=== PATIENT | male | born 1965 | race Caucasian/White ===

== ENCOUNTER 2024-04-14 10:44 | Outpatient (CLI) | payer OTHER, SELFPAY ==
[2024-04-14 10:20] LABS: Abs Immature Grans 0.07 10^3/uL (0.0-0.06); Absolute Basophil Count 0.05 10^3/uL (0.0-0.2); Absolute Eosinophil Count 0.02 10^3/uL (0.0-0.7); Absolute Lymphocyte Count 0.48 10^3/uL (1.2-3.4); Absolute Monocyte Count 0.48 10^3/uL (0.1-0.8); Absolute Neutrophil Count 3.96 10^3/uL (1.2-6.7); Eosinophils % 0.4 %; HCT 38.5 % (40.0-50.0); HGB 14.1 g/dL (13.5-17.5); Immature Grans % 1.4 %; Lymphocytes % 9.5 %; MCH 30.2 pg (27.0-33.0); MCHC 36.6 % (32.0-36.0); MCV 82 fL (80-95); MPV 8.4 fL (8.0-11.0); Monocytes % 9.5 %; Neutrophils % 78.2 %; Platelet Count 237 10^3/uL (130-400); RBC 4.67 10^6/uL (4.36-5.78); RDW 11.2 % (11.8-14.1); RDW-SD 33.2 fL; WBC 5.06 10^3/uL (4.4-10.8)
[2024-04-14 11:52] LABS: ALT 47 U/L (16-63); AST 43 U/L (15-37); Albumin 3.8 g/dL (3.4-5.0); Alkaline Phosphatase 89 U/L (46-116); Anion Gap 10.9 mmol/L (3-11); BUN 4 mg/dL (7-18); Bilirubin, Total 0.67 mg/dL (0.2-1.0); CO2 25.1 mmol/L (21.0-32.0); CREATININE 0.8 mg/dL (0.70-1.30); Calcium 8.3 mg/dL (8.5-10.1); Chloride 86 mmol/L (98-107); Estimated GFR 100.69 (mL/min/1.73m2); Glucose 166 mg/dL (74-106); Magnesium 1.6 mg/dL (1.8-2.4); Potassium 3.9 mmol/L (3.5-5.1); TSH 0.75 uIU/mL (0.36-3.74); Total Protein 7.7 g/dL (6.4-8.2)
[2024-04-14 11:56] LABS: Sodium 122 mmol/L (136-145)
== END 2024-04-14 10:45 | disposition home or self-care (01) ==
LOC: LBO 10:44
PROVIDERS: Visit Provider Internal Medicine Medical Oncology
DX: C79.51 Secondary malignant neoplasm of bone (principal); C78.01 Secondary malignant neoplasm of right lung; C78.02 Secondary malignant neoplasm of left lung; Z79.899 Other long term (current) drug therapy
CPT/HCPCS: 36415; 80053; 83735; 84439; 84443; 85025

== ENCOUNTER 2024-04-28 02:28 | Outpatient (CLI) | payer OTHER, SELFPAY ==
--- NOTE | 2024-04-28 | DI.MRI_ITS ---
Exam(s) MR BRAIN WO/W EXAM: MR BRAIN WO/W CLINICAL HISTORY: NEW METASTATIC LUNG CA,BONE OF UNKNOWN PRIMARY,[id number] TECHNIQUE: Multiplanar multisequence MRI of the brain was performed. CONTRAST MATERIAL: IV Contrast: 19 mL of Dotarem contrast administered. COMPARISON: No exams were available for comparison FINDINGS: VENTRICLES AND EXTRA AXIAL SPACES: Normal in size and morphology for the patient's age. HEMORRHAGE: None. CEREBRAL PARENCHYMA: No focus of restricted diffusion to suggest acute infarct. 1.2 x 0.8 x 1.2 cm en hancing lesion in the right occipital lobe with surrounding edema in the white matter. There are few foci of hyperintense nonenhancing signal in the white matter on the FLAIR and T2 weighted images lik rui reflecting small vessel ischemic disease. MIDLINE SHIFT: None. BRAINSTEM/CEREBELLUM: Normal. CALVARIUM: Normal. ENHANCEMENT: There is a 1.2 AP by 0.8 transverse by 1.2 craniocaudad cm enhancing lesion in the right occipital lobe. The findings are suspicious for metastatic focus. There is surrounding edema in th e white matter. There is no significant mass effect on the adjacent ventricle. VISUALIZED PARANASAL SINUSES/MASTOIDS: Mild mucosal thickening in the maxillary sinuses bilaterally. The remaining visualized paranasal sinuses are clear. The mastoid air cells are well pneumatized. AT[place] OF FORREST: Normal flow void. PITUITARY GLAND: Unremarkable. OTHER FINDINGS: IMPRESSION: 1.2 x 0.8 x 1.2 cm enhancing right occipital lesions suspicious for metastatic focus. Primary intrac ranial neoplasm cannot be entirely excluded. Unexpected findings DATA REPOSITORY:
[2024-04-28] MEDS: Gadoterate meglumine 20 ML SYRINGE 19 ML IVP (08:39)
[2024-04-28] MEDS: Normal Saline Flush 10 ML SYR IJ (08:40)
[2024-04-28 08:42] LABS: Abs Immature Grans 0.18 10^3/uL (0.0-0.06); Absolute Basophil Count 0.12 10^3/uL (0.0-0.2); Absolute Eosinophil Count 0.07 10^3/uL (0.0-0.7); Absolute Lymphocyte Count 0.67 10^3/uL (1.2-3.4); Absolute Monocyte Count 1.09 10^3/uL (0.1-0.8); Absolute Neutrophil Count 6.52 10^3/uL (1.2-6.7); Basophils % 1.4 %; Eosinophils % 0.8 %; HCT 39.9 % (40.0-50.0); HGB 13.4 g/dL (13.5-17.5); Immature Grans % 2.1 %; Lymphocytes % 7.7 %; MCH 30.1 pg (27.0-33.0); MCHC 33.6 % (32.0-36.0); MCV 90 fL (80-95); MPV 7.8 fL (8.0-11.0); Monocytes % 12.6 %; Neutrophils % 75.4 %; Platelet Count 217 10^3/uL (130-400); RBC 4.45 10^6/uL (4.36-5.78); RDW 13.9 % (11.8-14.1); RDW-SD 44.8 fL; WBC 8.65 10^3/uL (4.4-10.8)
[2024-04-28 08:57] LABS: ALT 34 U/L (16-63); AST 30 U/L (15-37); Albumin 4.1 g/dL (3.4-5.0); Alkaline Phosphatase 98 U/L (46-116); Anion Gap 11.6 mmol/L (3-11); BUN 13 mg/dL (7-18); Bilirubin, Total 0.92 mg/dL (0.2-1.0); CO2 23.4 mmol/L (21.0-32.0); CREATININE 1.1 mg/dL (0.70-1.30); Calcium 9.1 mg/dL (8.5-10.1); Chloride 99 mmol/L (98-107); Estimated GFR 76.37 (mL/min/1.73m2); Glucose 131 mg/dL (74-106); Magnesium 0.9 mg/dL (1.8-2.4); Potassium 3.7 mmol/L (3.5-5.1); Sodium 134 mmol/L (136-145); Total Protein 8.4 g/dL (6.4-8.2)
== END 2024-04-28 02:48 ==
PROVIDERS: Visit Provider Internal Medicine Medical Oncology
DX: C78.01 Secondary malignant neoplasm of right lung (principal); C79.51 Secondary malignant neoplasm of bone; Z79.899 Other long term (current) drug therapy
CPT/HCPCS: 70553; 80053; 83735; 85025

== ENCOUNTER 2024-05-05 02:39 | Outpatient (CLI) | payer OTHER, SELFPAY ==
[2024-05-05 11:59] LABS: Abs Immature Grans 0.09 10^3/uL (0.0-0.06); Absolute Eosinophil Count 0.09 10^3/uL (0.0-0.7); Absolute Lymphocyte Count 0.77 10^3/uL (1.2-3.4); Absolute Neutrophil Count 6.08 10^3/uL (1.2-6.7); Basophils % 1.3 %; Eosinophils % 1.1 %; HCT 38.2 % (40.0-50.0); HGB 13.3 g/dL (13.5-17.5); Immature Grans % 1.1 %; Lymphocytes % 9.8 %; MCH 30.4 pg (27.0-33.0); MCHC 34.8 % (32.0-36.0); MCV 87 fL (80-95); MPV 8.3 fL (8.0-11.0); Monocytes % 8.9 %; Neutrophils % 77.8 %; Platelet Count 236 10^3/uL (130-400); RBC 4.37 10^6/uL (4.36-5.78); RDW 13.2 % (11.8-14.1); RDW-SD 41.7 fL; WBC 7.83 10^3/uL (4.4-10.8)
[2024-05-05 12:26] LABS: ALT 53 U/L (16-63); AST 88 U/L (15-37); Albumin 4.2 g/dL (3.4-5.0); Alkaline Phosphatase 112 U/L (46-116); Anion Gap 10.4 mmol/L (3-11); BUN 17 mg/dL (7-18); CO2 24.6 mmol/L (21.0-32.0); Calcium 9.7 mg/dL (8.5-10.1); Chloride 96 mmol/L (98-107); Estimated GFR 85.63 (mL/min/1.73m2); Glucose 139 mg/dL (74-106); Magnesium 1.8 mg/dL (1.8-2.4); Potassium 4.2 mmol/L (3.5-5.1); Sodium 131 mmol/L (136-145); TSH 1.07 uIU/mL (0.36-3.74); Total Protein 8.1 g/dL (6.4-8.2)
[2024-05-05 17:07] LABS: FREE T4 1.38 ng/dL (0.76-1.46)
== END 2024-05-05 02:40 | disposition home or self-care (01) ==
PROVIDERS: Visit Provider Internal Medicine Medical Oncology
DX: C79.51 Secondary malignant neoplasm of bone (principal); C78.01 Secondary malignant neoplasm of right lung; C78.02 Secondary malignant neoplasm of left lung; Z79.899 Other long term (current) drug therapy
CPT/HCPCS: 36415; 80053; 83735; 84439; 84443; 85025

== ENCOUNTER 2024-05-19 03:03 | Outpatient (CLI) | payer OTHER, SELFPAY ==
[2024-05-19 12:27] LABS: Abs Immature Grans 0.25 10^3/uL (0.0-0.06); Absolute Basophil Count 0.08 10^3/uL (0.0-0.2); Absolute Eosinophil Count 0.01 10^3/uL (0.0-0.7); Absolute Lymphocyte Count 0.75 10^3/uL (1.2-3.4); Absolute Monocyte Count 1.28 10^3/uL (0.1-0.8); Absolute Neutrophil Count 4.82 10^3/uL (1.2-6.7); Basophils % 1.1 %; Eosinophils % 0.1 %; HCT 39.7 % (40.0-50.0); HGB 13.8 g/dL (13.5-17.5); Immature Grans % 3.5 %; Lymphocytes % 10.4 %; MCH 30.7 pg (27.0-33.0); MCHC 34.8 % (32.0-36.0); MCV 88 fL (80-95); Monocytes % 17.8 %; Neutrophils % 67.1 %; Platelet Count 229 10^3/uL (130-400); RBC 4.49 10^6/uL (4.36-5.78); RDW 15.2 % (11.8-14.1); RDW-SD 47.8 fL; WBC 7.19 10^3/uL (4.4-10.8)
[2024-05-19 13:04] LABS: ALT 34 U/L (16-63); AST 31 U/L (15-37); Alkaline Phosphatase 123 U/L (46-116); Anion Gap 11.1 mmol/L (3-11); BUN 12 mg/dL (7-18); Bilirubin, Total 0.8 mg/dL (0.2-1.0); CO2 23.9 mmol/L (21.0-32.0); CREATININE 0.9 mg/dL (0.70-1.30); Calcium 9.5 mg/dL (8.5-10.1); Chloride 96 mmol/L (98-107); Estimated GFR 97.17 (mL/min/1.73m2); Glucose 133 mg/dL (74-106); Magnesium 1.6 mg/dL; Potassium 4.1 mmol/L (3.5-5.1); Sodium 131 mmol/L (136-145); TSH 0.97 uIU/mL (0.36-3.74); Total Protein 8.3 g/dL (6.4-8.2)
[2024-05-19 23:18] LABS: T4, Free 1.4 ng/dL (0.8-2.2)
== END 2024-05-19 03:04 | disposition home or self-care (01) ==
PROVIDERS: Visit Provider Internal Medicine Medical Oncology
DX: C79.51 Secondary malignant neoplasm of bone (principal); C78.01 Secondary malignant neoplasm of right lung; C78.02 Secondary malignant neoplasm of left lung; Z79.899 Other long term (current) drug therapy
CPT/HCPCS: 36415; 80053; 83735; 84439; 84443; 85025

== ENCOUNTER 2024-06-08 01:45 | Outpatient (CLI) | payer OTHER, SELFPAY ==
[2024-06-08 11:04] LABS: Abs Immature Grans 0.34 10^3/uL (0.0-0.06); Absolute Basophil Count 0.12 10^3/uL (0.0-0.2); Absolute Eosinophil Count 0.08 10^3/uL (0.0-0.7); Absolute Lymphocyte Count 0.78 10^3/uL (1.2-3.4); Absolute Monocyte Count 1.29 10^3/uL (0.1-0.8); Absolute Neutrophil Count 6.58 10^3/uL (1.2-6.7); Basophils % 1.3 %; Eosinophils % 0.9 %; HCT 36.8 % (40.0-50.0); HGB 12.4 g/dL (13.5-17.5); Immature Grans % 3.7 %; Lymphocytes % 8.5 %; MCH 30.6 pg (27.0-33.0); MCHC 33.7 % (32.0-36.0); MCV 91 fL (80-95); Neutrophils % 71.6 %; Platelet Count 353 10^3/uL (130-400); RBC 4.05 10^6/uL (4.36-5.78); RDW-SD 47.1 fL; WBC 9.19 10^3/uL (4.4-10.8)
[2024-06-08 11:42] LABS: ALT 62 U/L (16-63); AST 47 U/L (15-37); Albumin 3.7 g/dL (3.4-5.0); Alkaline Phosphatase 113 U/L (46-116); Anion Gap 11.7 mmol/L (3-11); BUN 12 mg/dL (7-18); Bilirubin, Total 0.6 mg/dL (0.2-1.0); CO2 26.3 mmol/L (21.0-32.0); CREATININE 0.8 mg/dL (0.70-1.30); Chloride 96 mmol/L (98-107); Estimated GFR 100.69 (mL/min/1.73m2); FREE T4 1.54 ng/dL (0.76-1.46); Glucose 104 mg/dL (74-106); Magnesium 1.9 mg/dL; Potassium 4.4 mmol/L (3.5-5.1); Sodium 134 mmol/L (136-145); TSH 1.46 uIU/mL (0.36-3.74); Total Protein 8.6 g/dL (6.4-8.2)
== END 2024-06-08 01:46 | disposition home or self-care (01) ==
LOC: LBO 01:45
PROVIDERS: Visit Provider Internal Medicine Medical Oncology
DX: C79.51 Secondary malignant neoplasm of bone (principal); C78.01 Secondary malignant neoplasm of right lung; C78.02 Secondary malignant neoplasm of left lung; Z79.899 Other long term (current) drug therapy
CPT/HCPCS: 36415; 80053; 83735; 84439; 84443; 85025

== ENCOUNTER 2024-06-29 08:38 | Outpatient (CLI) | payer OTHER, SELFPAY ==
[2024-06-29 10:29] LABS: Abs Immature Grans 0.15 10^3/uL (0.0-0.06); Absolute Basophil Count 0.07 10^3/uL (0.0-0.2); Absolute Eosinophil Count 0.13 10^3/uL (0.0-0.7); Absolute Lymphocyte Count 1.01 10^3/uL (1.2-3.4); Absolute Monocyte Count 1.14 10^3/uL (0.1-0.8); Absolute Neutrophil Count 6.69 10^3/uL (1.2-6.7); Basophils % 0.8 %; Eosinophils % 1.4 %; HCT 39.4 % (40.0-50.0); HGB 13.3 g/dL (13.5-17.5); Immature Grans % 1.6 %; MCH 30.2 pg (27.0-33.0); MCHC 33.8 % (32.0-36.0); MCV 89 fL (80-95); MPV 8.3 fL (8.0-11.0); Monocytes % 12.4 %; Neutrophils % 72.8 %; Platelet Count 354 10^3/uL (130-400); RBC 4.41 10^6/uL (4.36-5.78); RDW 12.5 % (11.8-14.1); RDW-SD 41.1 fL; WBC 9.19 10^3/uL (4.4-10.8)
[2024-06-29 11:06] LABS: ALT 35 U/L (16-63); AST 37 U/L (15-37); Alkaline Phosphatase 116 U/L (46-116); Anion Gap 9.5 mmol/L (3-11); BUN 11 mg/dL (7-18); Bilirubin, Total 0.5 mg/dL (0.2-1.0); CO2 25.5 mmol/L (21.0-32.0); CREATININE 0.9 mg/dL (0.70-1.30); Chloride 98 mmol/L (98-107); Estimated GFR 97.17 (mL/min/1.73m2); Glucose 111 mg/dL (74-106); Potassium 4.2 mmol/L (3.5-5.1); Sodium 133 mmol/L (136-145); TSH 1.07 uIU/mL (0.36-3.74); Total Protein 8.8 g/dL (6.4-8.2)
== END 2024-06-29 08:39 | disposition home or self-care (01) ==
LOC: LBO 08:45
PROVIDERS: Visit Provider Internal Medicine Medical Oncology
DX: C79.51 Secondary malignant neoplasm of bone (principal); C78.01 Secondary malignant neoplasm of right lung; C78.02 Secondary malignant neoplasm of left lung; Z79.899 Other long term (current) drug therapy
CPT/HCPCS: 36415; 80053; 83735; 84439; 84443; 85025

== ENCOUNTER 2024-07-20 04:26 | Outpatient (CLI) | payer OTHER, SELFPAY ==
[2024-07-20 10:55] LABS: Abs Immature Grans 0.07 10^3/uL (0.0-0.06); Absolute Basophil Count 0.07 10^3/uL (0.0-0.2); Absolute Eosinophil Count 0.15 10^3/uL (0.0-0.7); Absolute Lymphocyte Count 1.18 10^3/uL (1.2-3.4); Absolute Monocyte Count 1.21 10^3/uL (0.1-0.8); Absolute Neutrophil Count 5.22 10^3/uL (1.2-6.7); Basophils % 0.9 %; Eosinophils % 1.9 %; HCT 38.6 % (40.0-50.0); Immature Grans % 0.9 %; Lymphocytes % 14.9 %; MCH 29.3 pg (27.0-33.0); MCHC 33.7 % (32.0-36.0); MCV 87 fL (80-95); MPV 8.4 fL (8.0-11.0); Monocytes % 15.3 %; Neutrophils % 66.1 %; Platelet Count 297 10^3/uL (130-400); RBC 4.44 10^6/uL (4.36-5.78); RDW 12.3 % (11.8-14.1); RDW-SD 39.3 fL
[2024-07-20 11:22] LABS: ALT 28 U/L (16-63); AST 24 U/L (15-37); Albumin 4.1 g/dL (3.4-5.0); Alkaline Phosphatase 104 U/L (46-116); Anion Gap 8.8 mmol/L (3-11); BUN 10 mg/dL (7-18); Bilirubin, Total 0.4 mg/dL (0.2-1.0); CO2 27.2 mmol/L (21.0-32.0); CREATININE 0.9 mg/dL (0.70-1.30); Calcium 9.9 mg/dL (8.5-10.1); Chloride 99 mmol/L (98-107); Estimated GFR 97.17 (mL/min/1.73m2); FREE T4 1.19 ng/dL (0.76-1.46); Glucose 124 mg/dL (74-106); Magnesium 1.8 mg/dL (1.8-2.4); Potassium 4.4 mmol/L (3.5-5.1); Sodium 135 mmol/L (136-145); TSH 1.17 uIU/mL (0.36-3.74); Total Protein 8.8 g/dL (6.4-8.2)
== END 2024-07-20 04:27 | disposition home or self-care (01) ==
LOC: LBO 04:26
PROVIDERS: Visit Provider Internal Medicine Medical Oncology
DX: C79.51 Secondary malignant neoplasm of bone (principal); C78.01 Secondary malignant neoplasm of right lung; C78.02 Secondary malignant neoplasm of left lung; Z79.899 Other long term (current) drug therapy
CPT/HCPCS: 36415; 80053; 83735; 84439; 84443; 85025

== ENCOUNTER 2024-08-11 02:06 | Outpatient (CLI) | payer OTHER, SELFPAY ==
[2024-08-11 12:06] LABS: Abs Immature Grans 0.06 10^3/uL (0.0-0.06); Absolute Basophil Count 0.07 10^3/uL (0.0-0.2); Absolute Lymphocyte Count 1.04 10^3/uL (1.2-3.4); Absolute Monocyte Count 1.03 10^3/uL (0.1-0.8); Absolute Neutrophil Count 4.75 10^3/uL (1.2-6.7); Eosinophils % 1.4 %; HCT 39.5 % (40.0-50.0); HGB 13.1 g/dL (13.5-17.5); Immature Grans % 0.9 %; Lymphocytes % 14.8 %; MCH 28.7 pg (27.0-33.0); MCHC 33.2 % (32.0-36.0); MCV 86 fL (80-95); MPV 8.5 fL (8.0-11.0); Monocytes % 14.6 %; Neutrophils % 67.3 %; Platelet Count 270 10^3/uL (130-400); RBC 4.57 10^6/uL (4.36-5.78); RDW 12.5 % (11.8-14.1); RDW-SD 39.4 fL; WBC 7.05 10^3/uL (4.4-10.8)
[2024-08-11 12:49] LABS: ALT 27 U/L (16-63); AST 23 U/L (15-37); Albumin 3.9 g/dL (3.4-5.0); Alkaline Phosphatase 97 U/L (46-116); BUN 14 mg/dL (7-18); Bilirubin, Total 0.4 mg/dL (0.2-1.0); CREATININE 0.9 mg/dL (0.70-1.30); Calcium 9.5 mg/dL (8.5-10.1); Chloride 100 mmol/L (98-107); Estimated GFR 97.17 (mL/min/1.73m2); Glucose 172 mg/dL (74-106); Magnesium 1.7 mg/dL (1.8-2.4); Sodium 135 mmol/L (136-145); TSH 1.05 uIU/mL (0.36-3.74); Total Protein 8.1 g/dL (6.4-8.2)
== END 2024-08-11 02:07 | disposition home or self-care (01) ==
LOC: LBO 02:06
PROVIDERS: Visit Provider Internal Medicine Medical Oncology
DX: C79.51 Secondary malignant neoplasm of bone (principal); C78.01 Secondary malignant neoplasm of right lung; C78.02 Secondary malignant neoplasm of left lung; Z79.899 Other long term (current) drug therapy
CPT/HCPCS: 36415; 80053; 83735; 84439; 84443; 85025

== ENCOUNTER 2024-09-07 02:09 | Outpatient (CLI) | payer OTHER, SELFPAY ==
[2024-09-07 08:55] LABS: Abs Immature Grans 0.08 10^3/uL (0.0-0.06); Absolute Basophil Count 0.05 10^3/uL (0.0-0.2); Absolute Eosinophil Count 0.02 10^3/uL (0.0-0.7); Absolute Lymphocyte Count 0.76 10^3/uL (1.2-3.4); Absolute Monocyte Count 1.09 10^3/uL (0.1-0.8); Absolute Neutrophil Count 5.98 10^3/uL (1.2-6.7); Basophils % 0.6 %; Eosinophils % 0.3 %; HCT 42.4 % (40.0-50.0); HGB 14.5 g/dL (13.5-17.5); Lymphocytes % 9.5 %; MCH 28.3 pg (27.0-33.0); MCHC 34.2 % (32.0-36.0); MCV 83 fL (80-95); MPV 7.9 fL (8.0-11.0); Monocytes % 13.7 %; Neutrophils % 74.9 %; Platelet Count 197 10^3/uL (130-400); RBC 5.13 10^6/uL (4.36-5.78); RDW 13.9 % (11.8-14.1); RDW-SD 40.8 fL; WBC 7.98 10^3/uL (4.4-10.8)
[2024-09-07 08:57] LABS: Bilirubin Negative (Negative); Blood Trace-intact (Negative); Clarity Clear (Clear); Glucose Negative (Negative); Ketones Negative (Negative); Leukocyte Esterase Negative (Negative); Nitrite Negative (Negative); Urobilinogen 0.2 mg/dL (Up to 0.2); pH 5.5 (5-8)
[2024-09-07 09:18] LABS: ALT 28 U/L (16-63); AST 27 U/L (15-37); Albumin 4.3 g/dL (3.4-5.0); Alkaline Phosphatase 113 U/L (46-116); Anion Gap 13.1 mmol/L (3-11); BUN 9 mg/dL (7-18); Bilirubin, Total 0.6 mg/dL (0.2-1.0); CO2 22.9 mmol/L (21.0-32.0); CREATININE 0.9 mg/dL (0.70-1.30); Calcium 9.2 mg/dL (8.5-10.1); Chloride 94 mmol/L (98-107); Estimated GFR 97.17 (mL/min/1.73m2); FREE T4 1.16 ng/dL (0.76-1.46); Glucose 148 mg/dL (74-106); Potassium 3.7 mmol/L (3.5-5.1); Sodium 130 mmol/L (136-145); TSH 1.23 uIU/mL (0.36-3.74); Total Protein 8.5 g/dL (6.4-8.2)
== END 2024-09-07 02:10 | disposition home or self-care (01) ==
LOC: LBO 02:09
PROVIDERS: Visit Provider Internal Medicine Medical Oncology
DX: C79.51 Secondary malignant neoplasm of bone (principal); C78.01 Secondary malignant neoplasm of right lung; C78.02 Secondary malignant neoplasm of left lung; Z79.899 Other long term (current) drug therapy
CPT/HCPCS: 36415; 80053; 81003; 83735; 84439; 84443; 85025

== ENCOUNTER 2024-09-29 08:32 | Outpatient (CLI) | payer OTHER, SELFPAY ==
[2024-09-29 07:55] LABS: Abs Immature Grans 0.05 10^3/uL (0.0-0.06); HCT 39.4 % (40.0-50.0); HGB 13.2 g/dL (13.5-17.5); Immature Grans % 0.8 %; MCH 29.3 pg (27.0-33.0); MCHC 33.5 % (32.0-36.0); MCV 87 fL (80-95); MPV 8.1 fL (8.0-11.0); Platelet Count 194 10^3/uL (130-400); RBC 4.51 10^6/uL (4.36-5.78); RDW 15.6 % (11.8-14.1); RDW-SD 47.8 fL; WBC 6.53 10^3/uL (4.4-10.8)
[2024-09-29 08:20] LABS: ALT 25 U/L (16-63); AST 23 U/L (15-37); Albumin 3.9 g/dL (3.4-5.0); Alkaline Phosphatase 115 U/L (46-116); Anion Gap 10.9 mmol/L (3-11); BUN 11 mg/dL (7-18); Bilirubin, Total 0.4 mg/dL (0.2-1.0); CO2 24.1 mmol/L (21.0-32.0); Calcium 9.1 mg/dL (8.5-10.1); Chloride 102 mmol/L (98-107); Estimated GFR 97.17 (mL/min/1.73m2); Glucose 170 mg/dL (74-106); Magnesium 1.5 mg/dL (1.8-2.4); Potassium 3.9 mmol/L (3.5-5.1); Sodium 137 mmol/L (136-145); TSH 2.36 uIU/mL (0.36-3.74); Total Protein 8.0 g/dL (6.4-8.2)
== END 2024-09-29 08:33 | disposition home or self-care (01) ==
LOC: LBO 08:32
PROVIDERS: Visit Provider Internal Medicine Medical Oncology
DX: C79.51 Secondary malignant neoplasm of bone (principal); C78.01 Secondary malignant neoplasm of right lung; C78.02 Secondary malignant neoplasm of left lung; Z79.899 Other long term (current) drug therapy
CPT/HCPCS: 36415; 80053; 81003; 83735; 84439; 84443; 85025

== ENCOUNTER 2024-10-19 04:26 | Outpatient (CLI) | payer OTHER, SELFPAY ==
[2024-10-19 08:41] LABS: Abs Immature Grans 0.19 10^3/uL (0.0-0.06); HCT 35.0 % (40.0-50.0); HGB 12.1 g/dL (13.5-17.5); Immature Grans % 3.5 %; MCH 30.6 pg (27.0-33.0); MCHC 34.6 % (32.0-36.0); MCV 88 fL (80-95); MPV 8.3 fL (8.0-11.0); Platelet Count 159 10^3/uL (130-400); RBC 3.96 10^6/uL (4.36-5.78); RDW 17.2 % (11.8-14.1); RDW-SD 53.9 fL; WBC 5.44 10^3/uL (4.4-10.8)
[2024-10-19 08:49] LABS: Glucose 500 mg/dL (Negative)
[2024-10-19 09:10] LABS: ALT 26 U/L (16-63); AST 26 U/L (15-37); Albumin 3.9 g/dL (3.4-5.0); Alkaline Phosphatase 111 U/L (46-116); Anion Gap 7.9 mmol/L (3-11); BUN 8 mg/dL (7-18); Bilirubin, Total 0.4 mg/dL (0.2-1.0); CO2 30.1 mmol/L (21.0-32.0); Calcium 8.8 mg/dL (8.5-10.1); Chloride 97 mmol/L (98-107); Estimated GFR 97.17 (mL/min/1.73m2); Glucose 139 mg/dL (74-106); Magnesium 1.1 mg/dL (1.8-2.4); Potassium 3.4 mmol/L (3.5-5.1); Sodium 135 mmol/L (136-145); TSH 0.90 uIU/mL (0.36-3.74); Total Protein 7.7 g/dL (6.4-8.2)
== END 2024-10-19 04:27 | disposition home or self-care (01) ==
LOC: LBO 04:27
PROVIDERS: Visit Provider Internal Medicine Medical Oncology
DX: C79.51 Secondary malignant neoplasm of bone (principal); C78.02 Secondary malignant neoplasm of left lung; C78.01 Secondary malignant neoplasm of right lung; Z79.899 Other long term (current) drug therapy
CPT/HCPCS: 36415; 80053; 81003; 83735; 84439; 84443; 85025

== ENCOUNTER 2024-11-10 08:04 | Outpatient (CLI) | payer OTHER, SELFPAY ==
[2024-11-10 08:40] LABS: Abs Immature Grans 0.10 10^3/uL (0.0-0.06); HCT 34.4 % (40.0-50.0); HGB 11.3 g/dL (13.5-17.5); Immature Grans % 1.7 %; MCH 29.9 pg (27.0-33.0); MCHC 32.8 % (32.0-36.0); MCV 91 fL (80-95); MPV 8.1 fL (8.0-11.0); Platelet Count 222 10^3/uL (130-400); RBC 3.78 10^6/uL (4.36-5.78); RDW 16.4 % (11.8-14.1); RDW-SD 52.9 fL; WBC 5.80 10^3/uL (4.4-10.8)
[2024-11-10 09:05] LABS: ALT 26 U/L (16-63); AST 22 U/L (15-37); Albumin 4.2 g/dL (3.4-5.0); Alkaline Phosphatase 130 U/L (46-116); Anion Gap 8.2 mmol/L (3-11); BUN 9 mg/dL (7-18); Bilirubin, Total 0.6 mg/dL (0.2-1.0); CO2 26.8 mmol/L (21.0-32.0); Calcium 9.6 mg/dL (8.5-10.1); Chloride 98 mmol/L (98-107); Estimated GFR 100.69 (mL/min/1.73m2); Glucose 142 mg/dL (74-106); Magnesium 1.3 mg/dL (1.8-2.4); Potassium 3.7 mmol/L (3.5-5.1); Sodium 133 mmol/L (136-145); TSH 1.14 uIU/mL (0.36-3.74); Total Protein 8.6 g/dL (6.4-8.2)
[2024-11-10 09:25] LABS: Glucose Negative (Negative)
== END 2024-11-10 08:05 | disposition home or self-care (01) ==
LOC: LBO 08:04
PROVIDERS: Visit Provider Internal Medicine Medical Oncology
DX: C79.51 Secondary malignant neoplasm of bone (principal); C78.01 Secondary malignant neoplasm of right lung; C78.02 Secondary malignant neoplasm of left lung; Z79.899 Other long term (current) drug therapy
CPT/HCPCS: 36415; 80053; 81003; 83735; 84439; 84443; 85025

== ENCOUNTER 2024-12-01 00:48 | Outpatient (CLI) | payer OTHER, SELFPAY ==
[2024-12-01 08:27] LABS: Abs Immature Grans 0.13 10^3/uL (0.0-0.06); HCT 38.7 % (40.0-50.0); HGB 13.2 g/dL (13.5-17.5); Immature Grans % 2.6 %; MCH 31.0 pg (27.0-33.0); MCHC 34.1 % (32.0-36.0); MCV 91 fL (80-95); MPV 8.1 fL (8.0-11.0); Platelet Count 125 10^3/uL (130-400); RBC 4.26 10^6/uL (4.36-5.78); RDW 15.9 % (11.8-14.1); RDW-SD 52.5 fL; WBC 5.05 10^3/uL (4.4-10.8)
[2024-12-01 08:40] LABS: Glucose Negative (Negative)
[2024-12-01 11:24] LABS: ALT 26 U/L (16-63); AST 31 U/L (15-37); Albumin 4.1 g/dL (3.4-5.0); Alkaline Phosphatase 92 U/L (46-116); Anion Gap 12.9 mmol/L (3-11); BUN 13 mg/dL (7-18); Bilirubin, Total 0.4 mg/dL (0.2-1.0); CO2 23.1 mmol/L (21.0-32.0); Calcium 9.2 mg/dL (8.5-10.1); Chloride 97 mmol/L (98-107); Estimated GFR 100.69 (mL/min/1.73m2); Glucose 137 mg/dL (74-106); Magnesium 1.1 mg/dL (1.8-2.4); Potassium 4.0 mmol/L (3.5-5.1); Sodium 133 mmol/L (136-145); TSH 1.95 uIU/mL (0.36-3.74); Total Protein 8.1 g/dL (6.4-8.2)
== END 2024-12-01 00:49 | disposition home or self-care (01) ==
LOC: LBO 00:48
PROVIDERS: Visit Provider Internal Medicine Medical Oncology
DX: C79.51 Secondary malignant neoplasm of bone (principal); C78.01 Secondary malignant neoplasm of right lung; C78.02 Secondary malignant neoplasm of left lung; Z79.899 Other long term (current) drug therapy
CPT/HCPCS: 36415; 80053; 81003; 83735; 84439; 84443; 85025

== ENCOUNTER 2024-12-22 03:23 | Outpatient (CLI) | payer OTHER, SELFPAY ==
[2024-12-22 07:55] LABS: Abs Immature Grans 0.10 10^3/uL (0.0-0.06); HCT 37.5 % (40.0-50.0); HGB 12.5 g/dL (13.5-17.5); Immature Grans % 2.1 %; MCH 30.3 pg (27.0-33.0); MCHC 33.3 % (32.0-36.0); MCV 91 fL (80-95); MPV 7.8 fL (8.0-11.0); Platelet Count 190 10^3/uL (130-400); RBC 4.13 10^6/uL (4.36-5.78); RDW 15.1 % (11.8-14.1); RDW-SD 48.3 fL; WBC 4.78 10^3/uL (4.4-10.8)
[2024-12-22 08:07] LABS: Glucose Negative (Negative)
[2024-12-22 08:32] LABS: ALT 27 U/L (16-63); AST 25 U/L (15-37); Albumin 4.2 g/dL (3.4-5.0); Alkaline Phosphatase 91 U/L (46-116); Anion Gap 11.8 mmol/L (3-11); BUN 9 mg/dL (7-18); Bilirubin, Total 0.6 mg/dL (0.2-1.0); CO2 26.2 mmol/L (21.0-32.0); Calcium 9.0 mg/dL (8.5-10.1); Chloride 97 mmol/L (98-107); Estimated GFR 100.69 (mL/min/1.73m2); Glucose 141 mg/dL (74-106); Magnesium 1.7 mg/dL (1.8-2.4); Potassium 3.8 mmol/L (3.5-5.1); Sodium 135 mmol/L (136-145); TSH 2.10 uIU/mL (0.36-3.74); Total Protein 8.0 g/dL (6.4-8.2)
== END 2024-12-22 03:24 | disposition home or self-care (01) ==
LOC: LBO 03:24
PROVIDERS: Visit Provider Internal Medicine Medical Oncology
DX: C79.51 Secondary malignant neoplasm of bone (principal); C78.01 Secondary malignant neoplasm of right lung; C78.02 Secondary malignant neoplasm of left lung
CPT/HCPCS: 36415; 80053; 81003; 83735; 84439; 84443; 85025

== ENCOUNTER 2025-02-02 01:54 | Outpatient (RCR) | payer OTHER, SELFPAY ==
[2025-01-11] MEDS: Normal Saline Flush 10 ML SYR IVP (07:46)
[2025-01-11 08:10] LABS: Abs Immature Grans 0.05 10^3/uL (0.0-0.06); HCT 33.7 % (40.0-50.0); HGB 11.4 g/dL (13.5-17.5); Immature Grans % 1.1 %; MCH 30.9 pg (27.0-33.0); MCHC 33.8 % (32.0-36.0); MCV 91 fL (80-95); MPV 8.9 fL (8.0-11.0); Platelet Count 119 10^3/uL (130-400); RBC 3.69 10^6/uL (4.36-5.78); RDW 15.0 % (11.8-14.1); RDW-SD 50.4 fL; WBC 4.61 10^3/uL (4.4-10.8)
[2025-01-11 08:35] LABS: ALT 28 U/L (16-63); AST 30 U/L (15-37); Albumin 4.0 g/dL (3.4-5.0); Alkaline Phosphatase 81 U/L (46-116); Anion Gap 11.4 mmol/L (3-11); BUN 20 mg/dL (7-18); Bilirubin, Total 0.6 mg/dL (0.2-1.0); CO2 25.6 mmol/L (21.0-32.0); Calcium 8.8 mg/dL (8.5-10.1); Chloride 97 mmol/L (98-107); Estimated GFR 100.69 (mL/min/1.73m2); Glucose 149 mg/dL (74-106); Magnesium 1.1 mg/dL (1.8-2.4); Potassium 3.2 mmol/L (3.5-5.1); Sodium 134 mmol/L (136-145); TSH 1.51 uIU/mL (0.36-3.74); Total Protein 7.8 g/dL (6.4-8.2)
[2025-01-11 09:29] LABS: Glucose Negative (Negative)
[2025-02-02 07:58] LABS: Abs Immature Grans 0.05 10^3/uL (0.0-0.06); HCT 34.2 % (40.0-50.0); HGB 12.0 g/dL (13.5-17.5); Immature Grans % 1.0 %; MCH 31.4 pg (27.0-33.0); MCHC 35.1 % (32.0-36.0); MCV 90 fL (80-95); MPV 8.0 fL (8.0-11.0); Platelet Count 132 10^3/uL (130-400); RBC 3.82 10^6/uL (4.36-5.78); RDW 15.5 % (11.8-14.1); RDW-SD 50.7 fL; WBC 5.22 10^3/uL (4.4-10.8)
[2025-02-02 08:08] LABS: Glucose Negative (Negative)
[2025-02-02 08:19] LABS: Magnesium 1.3 mg/dL (1.6-2.6)
[2025-02-02 08:21] LABS: ALT 19 U/L (10-49); AST 26 U/L (<34); Albumin 4.8 g/dL (3.4-5.0); Alkaline Phosphatase 66 U/L (46-116); Anion Gap 11 mmol/L (3-11); BUN 10 mg/dL (9-23); Bilirubin, Total 0.60 mg/dL (0.2-1.2); CO2 22.9 mmol/L (20.0-31.0); Calcium 9.4 mg/dL (8.3-10.6); Chloride 98 mmol/L (98-107); Glucose 120 mg/dL (74-106); Potassium 3.9 mmol/L (3.5-5.1); Sodium 132 mmol/L (136-145); Total Protein 7.5 g/dL (5.7-8.2)
[2025-02-02 08:26] LABS: TSH 1.79 uIU/mL (0.55-4.78)
== END 2025-02-07 23:59 | disposition home or self-care (01) ==
LOC: INF 01:54
PROVIDERS: PCP Nurse Practitioner; Visit Provider Internal Medicine Medical Oncology
DX: Z45.2 Encounter for adjustment and management of vascular access device (principal); Z79.899 Other long term (current) drug therapy; C78.01 Secondary malignant neoplasm of right lung; C78.02 Secondary malignant neoplasm of left lung
CPT/HCPCS: 36415; 36591; 80053; 81003; 83735; 84439; 84443; 85025

== ENCOUNTER 2025-02-22 00:54 | Outpatient (CLI) | payer OTHER, SELFPAY ==
[2025-02-22 07:48] LABS: Abs Immature Grans 0.07 10^3/uL (0.0-0.06); HCT 32.8 % (40.0-50.0); HGB 11.1 g/dL (13.5-17.5); Immature Grans % 1.5 %; MCH 32.6 pg (27.0-33.0); MCHC 33.8 % (32.0-36.0); MCV 96 fL (80-95); MPV 8.2 fL (8.0-11.0); Platelet Count 230 10^3/uL (130-400); RBC 3.41 10^6/uL (4.36-5.78); RDW 15.3 % (11.8-14.1); RDW-SD 52.3 fL; WBC 4.68 10^3/uL (4.4-10.8)
[2025-02-22 07:52] LABS: Glucose Negative (Negative)
[2025-02-22 08:09] LABS: Magnesium 1.1 mg/dL (1.6-2.6)
[2025-02-22 08:10] LABS: ALT 14 U/L (10-49); AST 29 U/L (<34); Albumin 4.9 g/dL (3.2-5.0); Alkaline Phosphatase 70 U/L (46-116); Anion Gap 13 mmol/L (3-11); BUN 6 mg/dL (9-23); Bilirubin, Total 0.4 mg/dL (0.2-1.2); CO2 24.0 mmol/L (20.0-31.0); Calcium 9.3 mg/dL (8.3-10.6); Chloride 101 mmol/L (98-107); Glucose 168 mg/dL (74-106); Potassium 3.6 mmol/L (3.5-5.1); Sodium 138 mmol/L (136-145); Total Protein 8.0 g/dL (5.7-8.2)
[2025-02-22 08:11] LABS: TSH 1.00 uIU/mL (0.55-4.78)
== END 2025-02-22 00:55 | disposition home or self-care (01) ==
LOC: LBO 00:54
PROVIDERS: PCP Nurse Practitioner; Visit Provider Internal Medicine Medical Oncology
DX: C79.51 Secondary malignant neoplasm of bone (principal); C78.01 Secondary malignant neoplasm of right lung; C78.02 Secondary malignant neoplasm of left lung; Z79.899 Other long term (current) drug therapy
CPT/HCPCS: 36415; 80053; 81003; 83735; 84439; 84443; 85025